=== PATIENT | male | born 1940 | race Caucasian/White ===

== ENCOUNTER 2019-07-20 08:52 | Day surgery (SDC) | payer MEDICARE ==
--- NOTE | 2019-07-20 07:40 | HP ---
DATE OF SURGERY: 07/20/2019 ANTICIPATED PROCEDURE: Excision. HISTORY OF PRESENT ILLNESS: The patient has four lesions to the face and scalp presents for excision. They are all atypical. PAST MEDICAL HISTORY: ALLERGIES: NONE. MEDICATIONS: See list. PAST SURGICAL HISTORY: None recent. SOCIAL HISTORY: Negative. FAMILY HISTORY: Negative. REVIEW OF SYSTEMS: Heart disease. PHYSICAL EXAMINATION: VITAL SIGNS: Normal. CHEST: Clear. COR: Regular. IMPRESSION: Two lesions of the scalp and two lesions of the face. PLAN: Excision.
[~2019-07-20 08:52] MED LIST: Sodium Chloride 0.9% 1000 ML 1,000 ML ONE; XYLOCAINE 1% HCL 20 ML MDV ONE
[2019-07-20] MEDS ORDERED: SUBLIMAZE 100 MCG/2 ML IV ONE (08:53)
[2019-07-20] MEDS ORDERED: VERSED 5 MG/5 ML IV ONE (08:53)
[2019-07-20] MEDS ORDERED: Lactated Ringers 1,000 ML IV SCH (09:00)
--- NOTE | 2019-07-20 11:57 | OP ---
SURGERY DATE/TIME: 07/20/2019 1040 PREOPERATIVE DIAGNOSES: 1) A 1 cm pigmented lesion right preauricular/cheek. 2) Lesion left supraorbital 1 cm pigmented. 3) An 8 mm lesion of the scalp left anterior. 4) A 5 mm lesion of the posterior occipital area. 5) Left preauricular lesion 1 cm. POSTOPERATIVE DIAGNOSES: 1) A 1 cm pigmented lesion right preauricular/cheek. 2) Lesion left supraorbital 1 cm pigmented. 3) An 8 mm lesion of the scalp left anterior. 4) A 5 mm lesion of the posterior occipital area. 5) Left preauricular lesion 1 cm. PROCEDURES: 1) A 1 cm pigmented lesion right preauricular/cheek excision through a 3 cm elliptical excision with closure. 2) Lesion left supraorbital 1 cm pigmented excision through a 3 cm transverse elliptical excision with closure. 3) An 8 mm lesion of the scalp left anterior through a 2.5 cm elliptical excision and closure. 4) A 5 mm lesion of the posterior occipital area through a 1.5 cm elliptical excision and closure. 5) Left preauricular lesion 1 cm through a 3 cm elliptical excision with closure. SURGEON: Gil Kruger M.D. TAPPER SUPERVISOR: Dinora Hill Nurse Practitioner. ANESTHESIA: Local IV sedation 15 minutes monitored. COMPLICATIONS: None. CONDITION: Stable. INDICATION: A patient with five enlarging pigmented lesions marked preoperatively. DESCRIPTION OF PROCEDURE: Taken to surgery. All of these were elliptically excised. They were all for pathology and labeled. They were closed with 4-0 and 5-0 Prolene, cautery, 1% lidocaine about 35 cc. The patient did not experience any lidocaine toxicity symptoms. The patient tolerated the procedure satisfactorily.
[2019-07-20] MEDS ORDERED: XYLOCAINE 1% HCL 20 ML MDV ONE (12:39)
[2019-07-20 12:50] VITALS: BP 135/72; PULSE 64; O2SAT 96
== END 2019-07-20 12:53 | disposition home or self-care (01) ==
LOC: SDC 08:52
PROVIDERS: ATTEND Surgery
PROC: 0HB1XZZ Excision of Face Skin, External Approach (ICD-10-PCS; principal; 2019-07-20)
PROC: 0HB1XZZ Excision of Face Skin, External Approach (ICD-10-PCS; 2019-07-20)
PROC: 0HB0XZZ Excision of Scalp Skin, External Approach (ICD-10-PCS; 2019-07-20)
PROC: 0HB1XZZ Excision of Face Skin, External Approach (ICD-10-PCS; 2019-07-20)
DX: L82.1 Other seborrheic keratosis (principal); L57.0 Actinic keratosis; L73.9 Follicular disorder, unspecified; D22.9 Melanocytic nevi, unspecified
CPT/HCPCS: 88305; J2250; J3010

== ENCOUNTER 2019-09-28 08:37 | Day surgery (SDC) | payer MEDICARE ==
--- NOTE | 2019-09-26 14:00 | HP ---
DATE OF SURGERY: 09/28/2019 ADMISSION DIAGNOSIS: Lesion right forearm. ANTICIPATED PROCEDURE: Excision. HISTORY OF PRESENT ILLNESS: The patient has a lesion right forearm requiring excision and presents for such. PAST MEDICAL HISTORY: ALLERGIES: NONE. MEDICATIONS: Multiple. PAST SURGICAL HISTORY: Multiple. SOCIAL HISTORY: Negative. FAMILY HISTORY: Negative. REVIEW OF SYSTEMS: CVS: Positive. PHYSICAL EXAMINATION: VITAL SIGNS: Normal. CHEST: Clear. COR: Regular. EXTREMITIES: Lesion right forearm. IMPRESSION: Lesion right forearm. PLAN: Excision with C-arm.
[~2019-09-28 08:37] MED LIST changes: -Sodium Chloride 0.9% 1000 ML 1,000 ML ONE
[2019-09-28] MEDS ORDERED: SUBLIMAZE 100 MCG/2 ML IV ONE (08:38)
[2019-09-28] MEDS ORDERED: VERSED 5 MG/5 ML IV ONE (08:38)
[2019-09-28] MEDS ORDERED: Lactated Ringers 1,000 ML IV ONE ×2 (08:47→10:59)
[2019-09-28] MEDS ORDERED: Lactated Ringers 1,000 ML IV SCH (09:00)
[2019-09-28 12:09] VITALS: BP 114/74; PULSE 66; O2SAT 99
--- NOTE | 2019-09-28 12:41 | OP ---
SURGERY DATE/TIME: 09/28/2019 1050 PREOPERATIVE DIAGNOSIS: Skin lesion with foreign body right forearm 1.5 cm. POSTOPERATIVE DIAGNOSIS: Skin lesion with foreign body right forearm 1.5 cm. PROCEDURE: Excision of this lesion through a 3 cm elliptical excision with layered closure. SURGEON: Gil Kruger M.D. ANESTHESIA: Local IV sedation. COMPLICATIONS: None. CONDITION: Stable. INDICATION: Patient requiring removal of this lesion. DESCRIPTION OF PROCEDURE: Taken to surgery. IV sedation provided 15 minutes monitored. Oximetry kept over 90%. Comfort level satisfactory. Routine prep and drape. Time out performed. 1% lidocaine. Elliptical incision along the skin line. A 3 x 1.7 cm elliptical excision with layered closure with 3-0 Vicryl, 5-0 Vicryl, 4-0 Vicryl and Steri-Strips. The patient tolerated the procedure satisfactorily.
== END 2019-09-28 12:20 | disposition home or self-care (01) ==
LOC: SDC 08:37
PROVIDERS: ATTEND Surgery
DX: D23.61 Other benign neoplasm of skin of right upper limb, including shoulder (principal)
CPT/HCPCS: 88305; 88313; 88341; 88342; J2250; J3010

== ENCOUNTER 2024-03-19 15:45 | Emergency (ER) | payer MEDICARE ==
[2024-03-19 16:15] LABS: Absolute Neutrophil Ct (ANC) 4.42 x10^3/uL (1.78-5.38); BASOPHIL % 0.7 % (0.2-1.2); Basophil (Absolute #) 0.05 x10^3/uL (0.01-0.08); Eosinophil % 2.5 % (0.8-7.0); Eosinophil (Absolute #) 0.18 x10^3/uL (0.04-0.54); Hematocrit 35.9 % (40.1-51.0); Hemoglobin 11.8 g/dL (13.7-17.5); IMMATURE GRAN # 0.02 x10^3u/L (0.001-0.031); IMMATURE GRAN % 0.3 % (0.001-0.429); Lymphocyte (Absolute #) 1.83 x10^3/uL (1.32-3.57); Lymphocytes % 25.3 % (21.8-53.1); Mean Cell Volume 90.9 fL (79.0-92.2); Mean Corpuscular Hemoglobin 29.9 pg (25.7-32.2); Mean Corpuscular Hgb Concent. 32.9 g/dL (32.3-36.5); Mean Platelet Volume 10.3 fL (9.4-12.4); Monocyte (Absolute #) 0.74 x10^3/uL (0.30-0.82); Monocytes % 10.2 % (5.3-12.2); Platelet Count 215 x10^3/uL (163-337); Red Blood Count 3.95 x10^6/uL (4.63-6.08); White Blood Count 7.2 x10^3/uL (4.23-9.07)
[2024-03-19] MEDS: BABY ASPIRIN 81 MG CHEW PO ONE (16:18)
[2024-03-19] MEDS ORDERED: BABY ASPIRIN 81 MG CHEW ONE (16:18)
[2024-03-19 16:37] LABS: ALBUMIN 4.2 g/dL (3.5-5.0); ANION GAP 15.3 MEQ/L (5-15); BILIRUBIN,TOTAL 0.7 mg/dL (0.2-1.3); Calcium 10.2 mg/dL (8.4-10.2); Creatinine 1 1.03 mg/dL (0.66-1.25); EST GLOMERULAR FILTRATION RATE 72.1 ML/MIN; NT PRO BNPII 59.9 pg/mL (<300); Potassium 4.4 mmol/L (3.5-5.1); Total Protein 7.1 g/dL (6.3-8.2)
[2024-03-19] MEDS: Sodium Chloride 0.9% 500 ML 500 ML IV SCH (17:36)
[2024-03-19] MEDS ORDERED: Sodium Chloride 0.9% 500 ML 500 ML IV ONE (17:36)
--- NOTE | 2024-03-19 17:54 | ERPHSYRPT ---
- History of Present Illness Time Seen by Provider: 03/19/24 15:47 Historian: patient Exam Limitations: no limitations Patient Subjective Stated Complaint: Pt stated that he had some chest pain so he took 2 nitros and now he has low BP Triage Nursing Assessment: Pt brought to the ER by his , hypotensive, denies pain, pulses normal, skin n/w/d, denies N&V, hx of multiple ND's and 8 stents, no difficulty breathing, doesn't appear to be in any distress Physician History: 83-year-old with history of coronary artery disease status post stenting, hypertension, hyperlipidemia, diabetes mellitus presented in the ER with sudden onset chest pain almost 30 minutes prior to arrival while he was resting, not substernal, nonradiating, moderate to severe, sharp with no associated palpitations or shortness of breath. Patient took 2 nitros 5 minutes apart and it started to improve and currently having no chest pain. Although patient blood pressure is in 90s now, feels lightheaded and fatigued. No abdominal pain nausea or vomiting. Reports having similar symptoms in the past with stents placement 4 years ago. No fever chills or cough reported. Aspirin Treatment Today: 81 mg x 1 Allergies/Adverse Reactions: meperidine [From Demerol] Adverse Reaction (Severe, Verified 03/19/24 15:59) Nausea and Vomiting Diaphoresis, Lightheadedness. hydroxyzine [From Vistaril] Adverse Reaction (Intermediate, Verified 03/19/24 15:59) Nausea and Vomiting diaphoresis, lightheadedness. Home Medications: Ascorbic Acid 500 mg [Vitamin C 500 MG] 500 mg PO DAILY 07/17/19 [History] Atorvastatin Calcium [Lipitor] 80 mg PO HS 07/17/19 [History] Cholecalciferol (Vitamin D3) [Vitamin D3] 5,000 unit PO DAILY 07/17/19 [History] Famotidine 20 mg [Pepcid 20 MG] 20 mg PO BID 07/17/19 [History] Isosorbide Mononitrate 30 mg [Imdur 30 MG] 30 mg PO DAILY 07/17/19 [History] Lisinopril 5 mg [Zestril 5 MG] 5 mg PO DAILY 07/17/19 [History] Metoprolol Tartrate 50 mg [Lopressor 50 MG] 50 mg PO BID 07/17/19 [History] Nitroglycerin 0.4 mg (Ed) [Nitrostat 0.4 MG (ED)] 0.4 mg SL STAT 07/17/19 [History] Omeprazole 20 mg PO DAILY 07/17/19 [History] Vitamin B Complex 1 each PO DAILY 07/17/19 [History] Furosemide 20 mg [Lasix 20 mg] 20 mg PO DAILY 03/19/24 [History] Metformin HCl 500 mg [Glucophage 500 MG] 500 mg PO DAILY 03/19/24 [History] [place]-3 Fatty Acids/Fish Oil [Fish Oil 1,000 mg Capsule] 2,000 mg PO BID 03/19/24 [History] Tamsulosin HCl 0.4 mg [Flomax 0.4 MG] 0.4 mg PO DAILY 03/19/24 [History] Turmeric Root Extract [Turmeric Curcumin] 500 mg PO DAILY 03/19/24 [History] Hx Influenza Vaccination/Date Given: No Hx Pneumococcal Vaccination/Date Given: No Travel Risk - International Travel Have you traveled outside of the country in past 3 weeks: No - Emerging Infectious Disease Are you exhibiting symptoms associated with any current EIDs: No - Review of Systems Constitutional: No Symptoms Eyes: No Symptoms Ears, Nose, & Throat: No Symptoms Respiratory: No Symptoms Cardiac: Chest Pain Abdominal/Gastrointestinal: No Symptoms Musculoskeletal: No Symptoms Skin: No Symptoms Neurological: No Symptoms Endocrine: No Symptoms Hematologic/Lymphatic: No Symptoms Immunological/Allergic: No Symptoms - Past Medical History Pertinent Past Medical History: Yes Neurological History: No Pertinent History ENT History: Cataracts Cardiac History: Angina, Coronary Artery Disease, High Cholesterol, Hypertensio n, Myocardial Infarction (ND) Respiratory History: Other Endocrine Medical History: No Pertinent History Musculoskeletal History: Fractures GI Medical History: GERD History: No Pertinent History Psycho-Social History: No Pertinent History Male Reproductive Disorders: No Pertinent History Other Medical History: Former smoker. Snores at night. No CPAP Quit 2017. Hx of Multiple ND's. Hx of 8 cardiac stents. - Past Surgical History Past Surgical History: Yes Neuro Surgical History: No Pertinent History Cardiac: Cardiac Catheterization, Cardiac Stent Respiratory: No Pertinent History Gastrointestinal: Cholecystectomy, Hernia Repair Genitourinary: No Pertinent History Musculoskeletal: No Pertinent History, Orthopedic Surgery Male Surgical History: No Pertinent History Other Surgical History: lt wrist - Social History Smoking Status: Former smoker Exposure to second hand smoke: Yes Drug Use: none - Social Determinants of Health Will the patient participate in the screening: Yes Do you worry about a steady place to live?: No Do you have any problems with any of the following?: No known problems In the past 12 months,have you had to go without utilities?: No Transportation Issues: No Has anyone in your support network made you feel unsafe?: No Have you or anyone in your house had to go without enough: No - Nursing Vital Signs Nursing Vital Signs: Initial Vital Signs Pulse Rate 73 03/19/24 15:50 Respiratory Rate 20 03/19/24 15:50 Blood Pressure 97/57 03/19/24 15:50 O2 Sat by Pulse Oximetry 97 03/19/24 15:50 Pain Scale Pain Intensity 0 - Physical Exam General Appearance: no apparent distress, alert Ears, Nose, Throat Exam: normal ENT inspection, pharynx normal Neck Exam: normal inspection, non-tender, supple, full range of motion Respiratory Exam: normal breath sounds, lungs clear Cardiovascular Exam: regular rate/rhythm, normal heart sounds Gastrointestinal/Abdomen Exam: soft, normal bowel sounds, No tenderness Back Exam: normal inspection, normal range of motion Extremity Exam: normal inspection, normal range of motion Neurologic Exam: alert, oriented x 3, cooperative Skin Exam: normal color SpO2 Interpretation: normal SpO2: 92 O2 Delivery: Room Air - Course EKG Interpreted by Me: RATE (73), NORMAL AXIS, Q-wave, Other (Prolonged LA in terval, Q waves in anteroseptal leads) Ordered Tests: Active Orders 24 hr Category Date Time Status AMA [Release AMA] OM.NOW Care 03/19/24 19:34 Completed Tube Builder Airplane STAT Care 03/19/24 15:59 Completed EKG-ER Only STAT Care 03/19/24 15:59 Completed IV Insertion STAT Care 03/19/24 15:59 Completed CHEST 1 VIEW (PORTABLE) Stat Exams 03/19/24 16:13 Taken CBC W DIFF Stat Lab 03/19/24 16:14 Completed CMP Stat Lab 03/19/24 16:14 Completed NT PRO BNPII Stat Lab 03/19/24 16:14 Completed TROPONIN Q4H Lab 03/19/24 16:14 Completed Medication Summary Discontinued Medications Generic Name Dose Route Start Last Admin Trade Name Ranjana PRN Reason Stop Dose Admin Aspirin 324 mg 03/19/24 15:59 03/19/24 16:18 Aspirin 81 Mg Tab.Chew PO 03/19/24 16:00 324 mg STAT ONE Administration Aspirin Confirm 03/19/24 16:18 Aspirin 81 Mg Tab.Chew Administered 03/19/24 16:19 Dose 324 mg .ROUTE .STK-MED ONE Sodium Chloride 500 mls @ 50 mls/hr 03/19/24 17:30 03/19/24 17:36 Sodium Chloride 0.9% 500 Ml IV 04/18/24 17:29 50 mls/hr .Q10H ELIN Administration Sodium Chloride Confirm 03/19/24 17:36 Sodium Chloride 0.9% 500 Ml Administered 03/19/24 17:37 Dose 500 mls @ ud IV .STK-MED ONE Lab/Rad Data: Laboratory Result Diagrams 03/19/24 16:14 03/19/24 16:14 Laboratory Results 03/19/24 03/19/24 03/19/24 Range/Units 16:14 16:14 16:14 WBC 7.2 (4.23-9.07) x10^3/uL RBC 3.95 L (4.63-6.08) x10^6/uL Hgb 11.8 L (13.7-17.5) g/dL Hct 35.9 L (40.1-51.0) % MCV 90.9 (79.0-92.2) fL MCH 29.9 (25.7-32.2) pg MCHC 32.9 (32.3-36.5) g/dL RDW 14.0 (11.6-14.4) % Plt Count 215 (163-337) x10^3/uL MPV 10.3 (9.4-12.4) fL Gran % 61.0 (34.0-67.9) % Immature Gran % (Auto) 0.3 (0.001-0.429) % Nucleat RBC Rel Count 0.0 (0.00-0.2) % Eos # (Auto) 0.18 (0.04-0.54) x10^3/uL Immature Gran # (Auto) 0.02 (0.001-0.031) x10^3u/L Absolute Lymphs (auto) 1.83 (1.32-3.57) x10^3/uL Absolute Monos (auto) 0.74 (0.30-0.82) x10^3/uL Absolute Nucleated RBC 0.00 (0.00-0.012) x10^3u/L Lymphocytes % 25.3 (21.8-53.1) % Monocytes % 10.2 (5.3-12.2) % Eosinophils % 2.5 (0.8-7.0) % Basophils % 0.7 (0.2-1.2) % Absolute Granulocytes 4.42 (1.78-5.38) x10^3/uL Basophils # 0.05 (0.01-0.08) x10^3/uL Sodium 137 (135-145) mmol/L Potassium 4.4 (3.5-5.1) mmol/L Chloride 105 (98-107) mmol/L Carbon Dioxide 22 (22-30) mmol/L Anion Gap 15.3 H (5-15) MEQ/L BUN 14 (9-20) mg/dL Creatinine 1.03 (0.66-1.25) mg/dL Estimated GFR 72.1 ML/MIN Glucose 125 H (74-106) mg/dL Calcium 10.2 (8.4-10.2) mg/dL Total Bilirubin 0.70 (0.2-1.3) mg/dL AST 43 (17-59) U/L ALT 41 (0-50) U/L Alkaline Phosphatase 74 (38-126) U/L Troponin I < 0.012 (0.000-0.033) ng/mL NT-Pro-B Natriuret Pep 59.9 (<300) pg/mL Serum Total Protein 7.1 (6.3-8.2) g/dL Albumin 4.2 (3.5-5.0) g/dL - Progress Progress: improved Air Movement: good Progress Note: 03/19/24 17:55 34 years old with multiple medical problems including coronary artery disease with multiple stenting, hypertension, hyperlipidemia, diabetes mellitus is evaluated in the ER for sudden onset chest pain prior to arrival while he was resting. Patient took 2 nitros and chest pain improved. Patient is chest pain- free on presentation in the ER. He is given full dose aspirin. Patient is mildly hypotensive with blood pressure in the 90s systolic. He is given gentle hydration, workup showed normal white count, fairly unremarkable chemistries and negative initial troponin. EKG is sinus rhythm with no acute ST elevations. Chest x-ray showed chronic changes but no new findings reviewed by me, official report is pending. Patient remained asymptomatic. I believe patient's hypotension is secondary to nitros. With his extensive history of CAD and onset of pain for a recent, initial troponin could be falsely negative and needs further evaluation with trending of cardiac enzymes and possible cardiology evaluation. Patient sees Dr. Leong and would like to be transferred to [facility]. I have called [facility] transfer center, reviewed history, workup with resource coordinator and patient is auto accepted on behalf of Dr. Ray. Patient is made aware of it. 03/19/24 19:31 Patient later on decided not to go to [facility] and wanted to leave AGAINST MEDICAL ADVICE. He did not want to stay in this hospital either. He is not confused or altered at all. is also involved in decision making. Discussed with patient the risk of leaving AMA which would not only delay the diagnosis but worsening of condition and could be life-threatening which he understands but still wants to leave. Recommended return to ER for any worsening otherwise outpatient follow-up with cardiology. Blood Culture(s) Obtained: No Antibiotics given: No Counseled pt/family regarding: lab results, diagnosis, rad results Medical Desision Making - Independent Historian Additional History obtained from: Spouse - Discussion of managment Care discussed with:: on-call "doc" Reviewed:: Test results Agreed on:: Treatment plan - Diagnostic Testing Diagnostic test were ordered, analyzed, and reviewed by me: Yes Radiological Interpretation: Interpreted by me, Reviewed by me - Risk of complications The pt has a mod risk of morbidity or mortality based on: Need for prescription drug management - Departure Departure Disposition: AMA Clinical Impression: Chest pain, rule out acute myocardial infarction Condition: Stable Critical Care Time: No Referrals: RACHAEL ALMONTE MD [Primary Care Provider] - Follow up/PCP as directed
[2024-03-19 19:20] VITALS: BP 110/75; PULSE 54; RESP 13
[2024-03-19 19:53] VITALS: O2SAT 92
--- NOTE | 2024-03-19 21:12 | XRAY ---
Indication: Chest pain. Comparison: None Portable chest inflated and clear with a few incidental tiny calcified granulomas. Heart not enlarged. Bony thorax intact with osteopenia and mild degenerative changes. Impression: Nonacute chest with chronic features
== END 2024-03-19 19:36 | disposition left against medical advice (07) ==
LOC: ED 15:45
DX: R07.9 Chest pain, unspecified (principal); R42 Dizziness and giddiness; R53.83 Other fatigue; I10 Essential (primary) hypertension; E78.5 Hyperlipidemia, unspecified; E11.9 Type 2 diabetes mellitus without complications; Z79.84 Long term (current) use of oral hypoglycemic drugs; Z79.899 Other long term (current) drug therapy
CPT/HCPCS: 36000; 36415; 71045; 80053; 83880; 84484; 85025; 93005; 93041; 99284; A9270-GY